=== PATIENT | male | born 1950 | race Caucasian/White ===

== ENCOUNTER 2016-06-20 07:46 | Observation (INO) | payer BC ==
[2016-06-20] MEDS ORDERED: methylPREDNISolone 125 MG* 2 ML VIAL IV ONE (08:16)
[2016-06-20 08:36] LABS: Hematocrit 45 % (42-52); Hemoglobin 14.9 g/dl (14.0-18.0); Mean Corpuscular HGB Conc 33 g/dl (31-36); Mean Corpuscular Hemoglobin 32 pg (27-31); Mean Corpuscular Volume 97 fL (80-94); Mean Platelet Volume 8 um3 (7.4-10.4); Red Blood Count 4.64 10^6/ul (4.0-5.4); Red Cell Distribution Width 14 % (10.5-15)
--- NOTE | 2016-06-20 08:46 | RAD ---
HISTORY: Shortness of breath COMPARISONS: August 27, 2015 VIEWS:1: Single frontal portable view of the chest at 8:30 AM FINDINGS: LINES AND TUBES: None. CARDIOMEDIASTINAL SILHOUETTE: The cardiomediastinal silhouette is normal for portable technique. PLEURA: The costophrenic angles are sharp. No pleural abnormalities are noted. LUNG PARENCHYMA: There is hyperinflation. There is superimposed pattern of patchy over the position of the left lower lung and right upper lung compared to the previous examination. ABDOMEN: The upper abdomen is clear. There is no subphrenic gas. BONES AND SOFT TISSUES: No bone or soft tissue abnormalities are noted. IMPRESSION: HYPERINFLATION CONSISTENT WITH COPD WITH PATCHY AIRSPACE DISEASE SUPERIMPOSED IN THE LEFT LOWER LUNG AND RIGHT UPPER LUNG. RECOMMEND FOLLOW-UP UNTIL RESOLUTION TO EXCLUDE UNDERLYING PULMONARY PARENCHYMAL PATHOLOGY.
[2016-06-20 08:51] LABS: Albumin 3.8 g/dL (3.2-5.2); BUN/Creatinine Ratio 13.5 (8-20); Calcium 8.8 mg/dL (8.6-10.3); EGFR African American 205.8 (>60); Globulin 3.1 g/dL (2-4); Potassium 4.5 mmol/L (3.5-5.0); Total Bilirubin 0.6 mg/dL (0.2-1.0); Total Protein 6.9 g/dL (6.4-8.9); Troponin I 0.01 ng/mL (<0.04)
[2016-06-20] MEDS: Albuterol/Ipratropium NEB.SOL* Albuterol 2.5 MG/Ipratropium 0.5 MG 3 ML INH SCH ×5 (08:53→19:33)
[2016-06-20 09:14] LABS: FIO2 100
[2016-06-20 09:18] LABS: PCO2 Arterial 71 mmHg (35-45)
[2016-06-20] MEDS ORDERED: cefTRIAXone(*) 2 GM in NS 0.9% 100 ML* 100 ML IVPB ONE (09:48)
[2016-06-20] MEDS ORDERED: Azithromycin IV(*) 500 MG in NS 0.9% 250 ML* 250 ML IVPB SCH (10:00)
--- NOTE | 2016-06-20 10:31 | CONSULT ---
Subjective Date of Service: 06/20/16 Interval History: Patient ill a few days with increased cough, increased SOB, chills and sweats. He smoked a little yesterday. He states he arranged for [facility] to deliver O2 to his home today. Family History: Findings - unremarkable Social History: Findings - Lives alone. Works fulltime at [employer]. Smokes. No alcohol abuse. SDM is his oldest sister Akua. Past Medical History: Findings - copd Review of Systems - Measurements Intake and Output: Intake and Output Last 24 Hours 06/18/16 06/19/16 06/20/16 06/21/16 06:59 06:59 06:59 06:59 Weight 120 lb - Review of Systems Constitutional Symptoms: Negative: Weight Gain, Weight Loss, Weakness, Fatigue, Fever, Night Sweats, Unexplained Falls, Other Dermatology: Positive: Normal HEENT: Positive: Normal Eyes: Positive: Normal Thyroid: Positive: Normal Pulmonary: Positive: Cough, Sputum, Shortness of Breath Gastroenterology: Positive: Normal, Anorexia - anorexia x 2 days Genitourinary - Male: Negative: Prostatism, Erectile Dysfunction, Family Hx of Prostate Cancer, Other Musculoskeletal: Negative: Joint Pain, Joint Stiffness, Arthritis, Osteoporosis, Low Back Pain , Sciatica, Joint Deformities, Kyphoscoliosis, Other Endocrinology: Positive: Normal Neurology: Positive: Normal Psychiatry: Positive: Normal Allergic/Immunologic: Negative: Hx Anaphylaxis, Hx Angioedema, Hx Environmental, Hx Seasonal, Athsma, Hx HIV, Immunocompromise, Swollen Glands LymphNodes, Other Objective Active Medications: Azithromycin 500 mg/ Sodium (Chloride) 250 mls @ 250 mls/hr IVPB Q24H SAMMY Vital Signs 06/20/16 06/20/16 06/20/16 07:50 08:30 08:32 Temperature 100.1 F Pulse Rate 133 125 Respiratory 19 14 Rate Blood Pressure 145/71 131/69 (mmHg) O2 Sat by Pulse 91 100 Oximetry 06/20/16 06/20/16 06/20/16 08:57 09:00 09:30 Temperature Pulse Rate 122 121 132 Respiratory 16 14 26 Rate Blood Pressure 126/64 119/77 (mmHg) O2 Sat by Pulse 99 99 92 Oximetry 06/20/16 10:00 Temperature Pulse Rate 129 Respiratory 18 Rate Blood Pressure (mmHg) O2 Sat by Pulse 93 Oximetry Oxygen Devices in Use Now: Nasal Cannula Appearance: Alert, sitting up on ED stretcher. Tachypneic. Eyes: No Scleral Icterus Ears/Nose/Mouth/Throat: Clear Oropharnyx, Mucous Membranes Moist Neck: NL Appearance and Movements; NL JVP, No Thyroid Enlargement, Masses Respiratory: Symmetrical Chest Expansion and Respiratory Effort, Clear to Percussion, - - diminshed BS BL. No rales or wheezes. Cardiovascular: NL Sounds; No Murmurs; No JVD, RRR, No Edema Lymphatic: No Cervical Adenopathy, No Axillary Adenopathy Extremities: No Edema, No Clubbing, Cyanosis Skin: No Rash or Ulcers, - - sebaceous cyst L scapular area. R thumb and index finger deeply stained with nicotine. Neurological: Alert and Oriented x 3, NL Sensation Result Diagrams: 06/20/16 08:28 06/20/16 08:28 Assessment/Plan - Billing Plan By Medical Problem: 1. Severe COPD with hypercarbia, compensated. Pt is signing out AMA. I will rx azithromycin 250 mg daily x 4 days, cefuroxime 500 mg bid x 7 days. 2. Tobacco abuse. Pt advised to quit smoking and avoid second hand smoke. Patient signing out AMA. Fup Dr. Tesfaye.
[2016-06-20] MEDS ORDERED: cefTRIAXone VIAL(*) 1,000 MG in NS 0.9% 50 ML* 50 ML IVPB SCH (11:00)
[2016-06-20] MEDS ORDERED: Enoxaparin(*) 40 MG/0.4 ML SYR SUBCUT SCH (12:00)
--- NOTE | 2016-06-20 14:01 | ED ---
IRyan,Trang, scribed for Gene Russell MD on 06/20/16 at 0841 . Shortness of Breath - HPI Summary HPI Summary: This 65 y/o male presents to ED for acute SOB since 2 days ago. Pt states that the onset was sudden. He also reports productive cough with white sputum production. Pt is noted with persistent cough at time of the initial evaluation. PMHx is significant for COPD, and pt is currently on home oxygen. He denies any hx of being on breathing machine, but agrees to breathing treatment and respiratory therapist's intervention if necessary, although he is dickey conscious about his insurance copays. Pt is a former smoker. - History of Current Complaint Hx Obtained From: Patient, Medical Records Onset/Duration: Sudden Onset, Lasting Days, Still Present Timing: Constant Current Severity: Moderate Dyspnea At: Rest Aggrevating Factors: Nothing Alleviating Factors: Nothing Associated Signs & Symptoms: Cough (Productive) - white sputum, Fever, Chills - Allergy/Home Medications Allergies/Adverse Reactions: Allergies Allergy/AdvReac Type Severity Reaction Status Date / Time Bee Venom Allergy Unknown Verified 10/19/13 11:28 Reaction Details Home Medications: Home Medications Albuterol HFA INHALER* 06/20/16 [History] PMH/Surg Hx/FS Hx/Imm Hx Respiratory History: Reports: Hx Chronic Obstructive Pulmonary Disease (COPD) Infectious Disease History: Denies: Traveled Outside the [place] in Last 30 Days - Family History Known Family History: Negative: Cardiac Disease, Hypertension, Respiratory Disease - Social History Alcohol Use: None Substance Use Type: Reports: None Hx Tobacco Use: Yes Smoking Status (MU): Former Smoker Review of Systems Positive: Fever, Chills Negative: Erythema Negative: Sore Throat Negative: Chest Pain Positive: Shortness Of Breath, Cough - productive Negative: Abdominal Pain, Vomiting, Nausea Negative: dysuria, hematuria Negative: Myalgia, Edema Negative: Rash Neurological: Other - negative dizziness All Other Systems Reviewed And Are Negative: Yes Physical Exam - Summary Physical Exam Summary: Constitutional: Well-developed, Well-nourished, Alert. (+) Respiratory distressed Skin: Warm, Dry HENT: Normocephalic; Atraumatic Eyes: Conjunctiva normal Neck: Musculoskeletal ROM normal neck. (-) JVD, (-) Stridor, (-) Tracheal deviation Cardio: Rhythm regular, rate tachycardic, Heart sounds normal; (-) Murmur Pulmonary/Chest wall: Extremely diminished breath sound; tachynic. respiratory exam limited due to persistent coughing. Abd: Soft, (-) Tenderness, (-) Distension, (-) Guarding, (-) Rebound Musculoskeletal: (-) Edema Lymph: (-) Cervical adenopathy Neuro: Alert, Oriented x3 Psych: Mood and affect Normal Triage Information Reviewed: Yes Vital Signs Reviewed: Yes Diagnostics - Laboratory Result Diagrams: 06/20/16 08:28 06/20/16 08:28 Lab Statement: Any lab studies that have been ordered have been reviewed, and results considered in the medical decision making process. - Radiology CXR Xray Interpretation: Positive (See Comments) - HYPERINFLATION CONSISTENT WITH COPD WITH PATCHY AIRSPACE DISEASE SUPERIMPOSED IN THE LEFT LOWER LUNG AND RIGHT UPPER LUNG. RECOMMEND FOLLOW-UP UNTIL RESOLUTION TO EXCLUDE UNDERLYING PULMONARY PARENCHYMAL PATHOLOGY. Radiology Interpretation Completed By: Radiologist - EKG 0812 Cardiac Rate: Tachycardia - 130 bpm EKG Rhythm: Sinus Tachycardia ST Segment: Normal Course/Dx - Course Assessment/Plan: This 65 y/o male presents to ED for acute and moderate to severe SOB since 2 days ago. PMHx is significant for COPD, and pt is on oxygen at home. Pt is noted with tachypnic and decreased breath sound as well as tachycardia. Pt is noted with temperature of 100.1 F and oxygen sat of 91% on 3 L oxygen. Pt was given a breathing treatment, after which his oxygen sat improved. CXR indicates evidence of COPD and PNA. Pt was given azithromycin and rocephin. ABG indicates elevated pCO2, pO2 and HCO3. Hospitalist was consulted, who accepts the admission of the pt. - Diagnoses Provider Diagnoses: Hypoxemia, Community acquired pneumonia, COPD exacerbation - Physician Notifications Discussed Care of Patient With: Dr. Gaitan (Hospitalist) at 0956 AM Time Discussed With Above Provider: 09:56 Instructed by Provider To: Admit As Inpatient - Critical Care Time Critical Care Time: 75-104 min - 75 minutes Discharge - Discharge Plan Condition: Stable Disposition: ADMITTED TO [facility] Prescriptions: Azithromycin TAB* [Zithromax TAB (Z-CHASIDY)*] 250 mg PO DAILY #4 tab Cefuroxime 500 MG(NF) 500 mg PO BID #14 tab Referrals: Stewart Tesfaye MD [Primary Care Provider] - The documentation as recorded by the Ryan neal Soohyun accurately reflects the service I personally performed and the decisions made by me, Gene Russell MD.
[2016-06-21] MEDS: Albuterol/Ipratropium NEB.SOL* Albuterol 2.5 MG/Ipratropium 0.5 MG 3 ML INH SCH ×3 (00:03→07:37)
[2016-06-21 07:19] VITALS: BP 121/68
[2016-06-21] MEDS ORDERED: cefTRIAXone VIAL(*) 1,000 MG in NS 0.9% 50 ML* 50 ML IVPB SCH (09:00)
[2016-06-21] MEDS ORDERED: Azithromycin TAB* 250 MG PO SCH (09:00)
--- NOTE | 2016-06-21 16:08 | DS ---
DISCHARGE SUMMARY: DATE OF ADMISSION: 06/20/16 DATE OF DISCHARGE: 06/21/16 PRIMARY CARE PHYSICIAN: Dr. Tesfaye. DISCHARGE DIAGNOSES: 1. Chronic obstructive pulmonary disease exacerbation. 2. Community-acquired pneumonia. 3. Hyponatremia, most likely due to dehydration. SECONDARY DIAGNOSES: 1. Chronic obstructive pulmonary disease, oxygen dependent for over a year. 2. Active tobacco use. MEDICATIONS AT DISCHARGE: Include: 1. Albuterol inhaler 1 puff every 6 hours p.r.n. 2. Azithromycin 250 mg daily. 3. Cefuroxime 500 mg b.i.d. for 7 days total. 4. Levalbuterol 0.63 mg nebulizer p.r.n. 5. Dulera 200/5 mcg 2 puffs inhalation b.i.d. RECOMMENDATIONS: The patient is recommended to continue his oxygen, but at an increased level of 4 L. Please also note that the patient was advised to stay in the hospital for at least one more day, but he refused and requested to be discharged. At discharge, the patient was recommended to follow up with Dr. Tesfaye in approximately 4 to 7 days. HOSPITALIZATION COURSE: Yasmani Price is a 65-year-old male with history of COPD , on oxygen at 3 L at home, who started having increased cough and shortness of breath for 4 days. He presented to the emergency department and initially he wanted to leave against medical advice, but was convinced to stay overnight. The morning of my evaluation on the day of discharge, the patient requested to be discharged despite the patient was informed that he most likely would need another one or two days of hospitalization. The patient also refuses to use prednisone at home due to having bad mood due to that. The patient stated that it "puts him in a bad place." Currently, the patient appears stable, but his respiratory status overall is poor. He has severely decreased breath sounds bilaterally and I suspect it is chronic. The patient also was recommended to quit smoking, in fact he stated that he quit himself 4 days ago prior to the presentation to the ED. PHYSICAL EXAMINATION: At the time of discharge, blood pressure of 121/68, heart rate of 107 and regular, respiratory rate is 16, oxygen saturation 97% on 4 L of oxygen nasal cannula, temperature 97.2. General: This is a very pleasant 65-year- old male who is in no acute distress. Awake, alert, and oriented x3. HEENT: Head atraumatic, normocephalic. Eyes, pupils are equal and reactive to light and accommodation. Oropharynx is clear. Mucosa moist. Neck: Supple. No JVD, no bruit bilaterally. Cardiovascular: Regular rate and rhythm. No murmur. Respiratory: Severely decreased breath sounds bilaterally with bilateral upper lung wheezes. Abdomen: Soft, nontender. Bowel sounds present in all 4 quadrants. Extremities: Pulses +2 bilaterally. No clubbing or cyanosis. LABORATORY DATA: Please also note that on his initial laboratory values, the patient was noted to be hyponatremic with a sodium of 125, most likely due to dehydration. Laboratory values were not repeated in the morning and due to this , the patient is requesting to be discharged. He is recommended to follow up on his hyponatremia with his primary care provider as outpatient. Please note that this is a short summary of the patient's hospital stay. Please refer to further medical records for details. TIME SPENT: Approximately 35 minutes was spent on the patient's discharge. CC: Dr. Tesfaye* [id number]/[facility] #: [id number] ELICIA
== END 2016-06-21 11:40 | disposition home or self-care (01) ==
LOC: ED 07:46 → MED 11:02
PROVIDERS: ADMIT Internal Medicine; ATTEND Internal Medicine
DX: J44.1 Chronic obstructive pulmonary disease with (acute) exacerbation (principal); J18.9 Pneumonia, unspecified organism; E87.1 Hypo-osmolality and hyponatremia; F17.210 Nicotine dependence, cigarettes, uncomplicated; R00.0 Tachycardia, unspecified; I49.1 Atrial premature depolarization; Z79.899 Other long term (current) drug therapy
CPT/HCPCS: 36415; 71010; 80053; 82803; 83605; 84484; 85025; 87040; 93005; 94640; 94760; 96365; 96367; 96375; 99291; A9270-GY; G0378; J0456; J0696; J2930